=== PATIENT | male | born 1970 | race Caucasian/White ===

== ENCOUNTER → 2021-09-15 21:20 | Outpatient (CLI) | payer OTHER, SELFPAY ==
[2021-09-15 22:56] LABS: Amphetamine/Metha Screen,Urine Negative ng/ml (<1000); Barbiturates Screen,Urine Negative ng/ml (<200)
[2021-09-15 22:57] LABS: Benzodiazepines Screen,Urine Negative ng/ml (<200); Cannabinoid Screen,Urine Negative ng/ml (<50)
[2021-09-15 22:58] LABS: Cocaine Screen,Urine Negative ng/ml (<300)
[2021-09-15 22:59] LABS: Methadone Screen,Urine Negative ng/ml (<300); Opiate Screen,Urine Negative ng/ml (<300)
[2021-09-15 23:00] LABS: Phencyclidine Screen,Urine Negative ng/ml (<25)
== END ==
PROVIDERS: Visit Provider Family Medicine
DX: M54.9 Dorsalgia, unspecified (principal)
CPT/HCPCS: 80305

== ENCOUNTER → 2022-02-02 16:00 | Outpatient (CLI) | payer OTHER, SELFPAY ==
[2022-02-02 20:39] LABS: Barbiturates Screen,Urine Negative ng/ml (<200); Benzodiazepines Screen,Urine Negative ng/ml (<200)
[2022-02-02 20:40] LABS: Amphetamine/Metha Screen,Urine Negative ng/ml (<1000)
[2022-02-02 20:41] LABS: Cannabinoid Screen,Urine Negative ng/ml (<50); Cocaine Screen,Urine Negative ng/ml (<300)
[2022-02-02 20:42] LABS: Methadone Screen,Urine Negative ng/ml (<300); Opiate Screen,Urine Positive ng/ml (<300)
[2022-02-02 20:43] LABS: Phencyclidine Screen,Urine Negative ng/ml (<25)
== END ==
PROVIDERS: Visit Provider Family Medicine
DX: M54.9 Dorsalgia, unspecified (principal)
CPT/HCPCS: 80305

== ENCOUNTER 2023-11-12 06:41 | Day surgery (SDC) | payer OTHER, SELFPAY ==
[2023-11-10 09:14] VITALS: BMI 44.9
[2023-11-12] VITALS (8 sets, daily range): BP systolic 109–142; BP diastolic 64–92; PULSE 80–94; RESP 16–18; TEMP 36.5–36.6; O2SAT 93–98
[2023-11-12] MEDS: LACTATED RINGERS 1000ML 1,000 ML 25 ML IV (07:11)
--- NOTE | 2023-11-12 07:24 | P.PNANES_ITS ---
[facility] Disclaimer: The information contained in this section may have been updated after the patient was seen, as this information can be updated by other users. Medical History History of gastroesophageal reflux (GERD) History of hypertension Obesity Surgical History History of knee surgery Family History Other Family history of colon cancer Family history of coronary artery disease Social History (Updated 11/12/23 @ 07:07 by Kerry Jerry RN) Smoking Status: Former smoker alcohol intake: never substance use type: denies use current occupational status: employed Travel in the last 8 weeks: None caffeine: Yes [facility] Anesthesia Checklist Patient Identification Patient Identification: Arm Band, Family and Verbal (Name & ) Structural Data Admitted From: Home Planned Operative Procedure/s: Colonoscopy Consent for Planned Operative Procedure(s) Verified: Yes Verified Documents: Surgical Consent and History and Physical NPO Status Verified Time NPO: 03:30 Chart Verification Results Verified: None (None on chart except tox screen) Additional verifications Patient : No Anesthesia Reactions: No Cardiovascular Assessment Heart Sounds: S1 & S2 Pulse Rhythm: Irregular Peripheral Edema: No Airway Assessment Mallampati Score:: Class II C-Spine Mobility Assessed: Yes (FROM) TMJ Mobility Assessed: Yes Dentition: Good Dentition (Nothing loose per pt.) Neurological Assessment Level of Consciousness: Awake, Alert, Appropriate and Follows Commands Hx Seizures: No Numbness or tingling in extremities: No Anesthesia Plan Anesthesia Risk discussed: Yes Anesthesia Plan: Verified ASA Class: III Anesthesia Type: MAC
--- NOTE | 2023-11-12 08:24 | P.PCN_ITS ---
Procedure: Date: 11/12/23 Patient Date of :: 1970 Procedure Performed:: Total colonoscopy to terminal ileum with multiple polypectomy Indications:: Patient is a 53-year-old male from [facility] with a BMI of 45, history of hypertension, with family history of colon cancer in his brother who required resection and chemotherapy. He has another brother who actually had diverticulitis apparently. He had undergone a previous colonoscopy about 9 or 10 years ago in [facility] which was reportedly normal. He was scheduled for colonoscopy. Performing Provider:: Dex Rose MD Referring Provider:: Mesfin Porter MD Sedation:: MAC sedation Procedure:: Patient history was obtained and appropriate physical examination was performed. Patient's medications and allergies were reviewed. Informed consent was obtained after explaining the benefits, alternatives, and risks of the procedure including, but not limited to, bleeding, perforation, missed lesions, and adverse reaction to anesthesia medications. Patient was transported to endoscopy procedure room. Patient was connected to monitoring devices. Throughout the procedure the patient's blood pressure, pulse, and oxygen saturations were monitored continuously. Patient identification and planned procedure were verified by the staff. Patient was positioned in lateral decubitus position. Digital anorectal exam was performed. Variable stiffness Olympus colonoscope was inserted and advanced under direct visualization to the cecum. Adequacy of the colonic preparation was noted. The colonoscope was advanced a short distance into the terminal ileum. The colonoscope was then slowly withdrawn while carefully examining the color, texture, anatomy, and integrity of the mucosoa circumferentially. Within the rectum retroflexion was performed. Colonoscope was then withdrawn. . Advancement of the colonoscope was rather difficult due to redundancy of the sigmoid colon and patient body habitus. Ultimately was advanced to the cecum. In the ascending colon there was a small adenomatous appearing polyp removed with cold snare. At the hepatic flexure there was a relatively large pedunculated polyp removed in its entirety with hot snare. He required retrieval using Salas net for maceration and piecemeal retrieval. In the distal transverse colon there was a small to moderate adenomatous polyp removed with hot snare. In the descending colon there is a small adenomatous appearing polyp removed with cold snare. There were some beginnings of sigmoid diverticuli. . Findings:: Polyps as noted above. He had a total of 4 adenomatous appearing polyps Recommendations:: Repeat colonoscopy pending pathology, likely 2 to 3 years Complications:: None immediately apparent Estimated blood obtained (mL): 2 Colonoscopy Component Colonoscopy Component Was a colonoscopy performed during today's procedure?: Yes Recommended follow up colonoscopy of at least 10 years?: No If no, follow up colonoscopy recommended in ___ years?: See above Reason for not recommending >/= 10 yr follow-up interval?: See above
--- NOTE | 2023-11-12 08:38 | EXP.ANES.I ---
[facility] Anesthesia Record Part I Anesthesia Record I Intake, IV Amount: 600 Hydration: Adequate Estimated blood loss (mL): 1 Urine output (mL): 0 Blood Products used (#): none Blood Pressure: 109/69 SaO2: 97 Pulse Rate: 94 Airway Patency: Patent Respiratory Rate: 18 Temperature: 97.8 F Patient is:: Awake (Talking), Drowsy and Stable Stable to PACU at:: 08:33
[2023-11-12] MEDS: ACETAMINOPHEN 325MG TAB 650 MG PO (08:48)
== END 2023-11-12 09:18 | disposition home or self-care (01) ==
PROVIDERS: PCP Family Medicine; Visit Provider Surgery
PROC: 0DJD8ZZ Inspection of Lower Intestinal Tract, Via Natural or Artificial Opening Endoscopic (ICD-10-PCS; CPT 45385; principal; 2023-11-12 07:30)
DX: Z12.11 Encounter for screening for malignant neoplasm of colon (principal); Z80.0 Family history of malignant neoplasm of digestive organs; Z68.42 Body mass index [BMI] 45.0-49.9, adult; D12.3 Benign neoplasm of transverse colon; D12.4 Benign neoplasm of descending colon
CPT/HCPCS: 45385; J2704

== ENCOUNTER 2025-10-15 15:35 | Outpatient (CLI) | payer OTHER, SELFPAY ==
[2025-10-15 19:10] LABS: Hematocrit 45.2 % (42.0-52.0); Hemoglobin 14.9 g/dL (14.1-18.0); Immature Granulocytes % 0.4 %; Mean Corpuscular HGB Conc 33.0 g/dL (31.8-35.4); Mean Corpuscular Hemoglobin 31.0 pg (27.0-31.2); Mean Corpuscular Volume 94.2 fl (80-94); Nucleated Red Blood Cells % 0 %; Platelet Count 282 K/mm3 (142-424); Red Blood Count 4.80 M/mm3 (4.60-6.20); Red Cell Distribution Width-SD 45.1 fL; White Blood Count 6.9 K/mm3 (4.8-10.8)
[2025-10-15 19:33] LABS: Alanine Aminotransferase 38 U/L (12-78); Albumin Level 4.2 g/dl (3.5-5.0); Albumin/Globulin Ratio 1.3 (1.1-1.8); Alkaline Phosphatase 103 U/L (38-126); Anion Gap 13.6 mEq/L (5-15); Aspartate Amino Transferase 42 U/L (17-59); Bilirubin,Total 0.4 mg/dl (0.2-1.3); Blood Urea Nitrogen 11 mg/dl (9-20); Calcium 9.6 mg/dl (8.4-10.2); Carbon Dioxide 31 mmol/L (22.0-30.0); Chloride 102 mmol/L (98-107); Cholesterol 179 mg/dl (140-200); Creatinine,Serum 1.20 mg/dl (0.66-1.25); Estimated Glomerular Filt Rate 63 ml/min (>60); GFR (African American) 77 ML/MIN (>60); Globulin 3.3 g/dL (1.3-3.2); Glucose 114 mg/dl (74-100); HDL Cholesterol 35 mg/dl (40-60); Potassium 4.6 mmoL/L (3.5-5.1); Sodium 142 mmol/L (136-145); Total Protein,Serum 7.5 g/dl (6.3-8.2); Triglycerides 245 mg/dl (30-150)
[2025-10-15 20:20] LABS: Hepatitis C Ab Qual. W/ RFX NEGATIVE (Negative)
[2025-10-17 07:34] LABS: Hepatitis B Surface Antigen Negative (Negative)
== END 2025-10-15 23:59 | disposition home or self-care (01) ==
LOC: LAB.DROPOF 10-16 11:37
PROVIDERS: PCP Family Medicine; Visit Provider Family Medicine
DX: I10 Essential (primary) hypertension (principal); E66.01 Morbid (severe) obesity due to excess calories; Z68.41 Body mass index [BMI] 40.0-44.9, adult; Z12.5 Encounter for screening for malignant neoplasm of prostate; Z11.59 Encounter for screening for other viral diseases
CPT/HCPCS: 80053; 80061; 85025; 86803; 87340; 87389; G0103

== ENCOUNTER 2025-10-24 14:16 | Outpatient (CLI) | payer SELFPAY ==
--- NOTE | 2025-10-24 15:00 | CT_ITS ---
APPROVED REPORT Cryptologic Support Specialist: CLINICAL INDICATION Coronary risk evaluation and stratification TECHNIQUE Image Acquisition: A 128 slice MDCT scanner (T[place]orita View) was used for data acquisition. A noncontrast coronary calcium scan was performed. A CT attenuation threshold of 130 Hounsfield units (HU) was used for the detection of calcium in contiguous voxels of 1 sq mm in area to be counted as individual lesions. A tube voltage of 120 KVp was used. The patient received no medications prior to the coronary calcium CT. Image Reconstruction Transaxial images were reconstructed at 0.67 mm slide thickness. Data was reviewed interactively on an advanced workstation capable of 2 and 3-dimensional displays in all conventional reconstruction formats, including multiplanar reformations, maximum intensity projections, curved multiplanar reformations, and volume rendered reconstructions. When applicable, selected routine images describing the relevant coronary anatomy and pathology were saved and sent to PACS. Complications None Technical Quality Overall image quality was good. Total DLP (Dose-Length Product) is 161.9 mGy-cm. The reported value represents the total of one or more individual components during the CT acquisition of this date and at this time, and as such, the same value may appear in more than one CT report depending on the interpreting/reporting physicians. COMPARISON None FINDINGS CT Coronary Calcium Scoring LMA (Left Main Artery) = 0 LAD (Left Anterior Descending) = 99 LCX (Left Coronary Circumflex) = 20 RCA (Right Coronary Artery) = 63 Total Calcium Score = 182 using the AJ-130 method. There is no also calcification in the aortic valve and the ascending thoracic aorta. IMPRESSION -Coronary artery calcification is present. -Total Calcium Score (Agatston Score) = 182 using the AJ-130 method. -The observed calcium score of 182 is at 90th percentile for subjects of the same age, sex, and race/ethnicity. The interpretation of the calcium heart score is based on the following continuum*: 0 = no calcified plaque detected (risk of coronary artery disease is very low ??? less than 5%) 1-10 = calcium detected in extremely minimal levels (risk of coronary diseases is still low ??? less than 10%) 11-100 = mild levels of plaque detected with certainty (mild or minimal narrowing of heart arteries is likely) 101-400 = definite,at least moderate levels of plaque detected (relatively high risk of a heart attack within 3-5 years) >401-999 = extensive levels of plaque detected (high risk of heart attack, high levels of vascular disease are present, high likelihood of at least one significant coronary narrowing) *The calcium heart score quantifies the burden of coronary calcification/plaque in the coronary arteries. The calcium heart score does not evaluate the presence or the burden of non-calcified (i.e. soft) plaque. The coronary and cardiac findings of this Coronary Calcium CT were reviewed, reported, and signed by Shaka Yung MD (Cafe Team Member). Conclusion Electronically signed by : Elvira Yung MD 10/25/2025 14:20:49
== END 2025-10-24 23:59 | disposition home or self-care (01) ==
PROVIDERS: PCP Family Medicine; Visit Provider Family Medicine
DX: I10 Essential (primary) hypertension (principal); I25.10 Atherosclerotic heart disease of native coronary artery without angina pectoris; E66.01 Morbid (severe) obesity due to excess calories; Z68.41 Body mass index [BMI] 40.0-44.9, adult; Z82.49 Family history of ischemic heart disease and other diseases of the circulatory system
CPT/HCPCS: 75571